=== PATIENT | female | born 1990 | race Caucasian/White ===

== ENCOUNTER 2018-11-26 18:26 | Observation (INO) | payer MEDICAID ==
[2018-11-26 19:49] LABS: BASOPHILS 0.1 % (0-2); EOSINOPHILS 0.3 % (0-7); HEMATOCRIT 26.1 % (36.0-48.0); HEMOGLOBIN 7.9 g/dL (12-16); IMMATURE GRANULOCYTES 0.4 % (0-5); LYMPHOCYTES 9.9 % (15-50); MCH 21.4 pg (26.0-34.0); MCHC 30.3 g/dL (31.0-37.0); MCV 70.5 fL (80.0-100.0); MEAN PLATELET VOLUME 8.6 fL (7.4-10.4); MONOCYTES 4.4 % (2-11); NEUTROPHILS 84.9 % (40-80); PLATELET COUNT 460 10x3/uL (130-400); RDW 16.8 % (11.5-14.5); WBC 15.8 10x3/uL (4.8-10.8)
[2018-11-26 19:53] LABS: APPEARANCE CLEAR (CLEAR); BILIRUBIN NEGATIVE (NEGATIVE); COLOR YELLOW (YELLOW); GLUCOSE NEGATIVE (NEGATIVE); KETONE NEGATIVE (NEGATIVE); NITRITE NEGATIVE (NEGATIVE); PROTEIN TRACE mg/dL (NEGATIVE); SPECIFIC GRAVITY 1.015 (1.005-1.020); UROBILINOGEN NORMAL (NORMAL)
[2018-11-26 19:54] LABS: BACTERIA MODERATE /hpf (NONE SEEN); EPITHELIAL CELLS 0-5 /hpf (0-5); RED CELLS - URINE OCC /hpf (0-5)
[2018-11-26 20:01] LABS: UDS - AMPHET NEGATIVE QUAL (NEGATIVE); UDS - BARB NEGATIVE QUAL (NEGATIVE); UDS - BENZO NEGATIVE QUAL (NEGATIVE); UDS - COCAINE NEGATIVE QUAL (NEGATIVE); UDS - OPIATE NEGATIVE QUAL (NEGATIVE); UDS - PCP NEGATIVE QUAL (NEGATIVE); UDS - THC NEGATIVE QUAL (NEGATIVE)
[2018-11-27 01:49] LABS: BASOPHILS 0.1 % (0-2); EOSINOPHILS 0.3 % (0-7); HEMOGLOBIN 8.5 g/dL (12-16); IMMATURE GRANULOCYTES 0.5 % (0-5); MCH 22.6 pg (26.0-34.0); MCHC 31.5 g/dL (31.0-37.0); MCV 71.8 fL (80.0-100.0); MEAN PLATELET VOLUME 8.5 fL (7.4-10.4); MONOCYTES 1.2 % (2-11); NEUTROPHILS 91.9 % (40-80); PLATELET COUNT 386 10x3/uL (130-400); RBC 3.76 10x6/uL (4.00-5.40); RDW 17.2 % (11.5-14.5); WBC 14.3 10x3/uL (4.8-10.8)
[2018-11-27 02:10] LABS: ALBUMIN 1.7 g/dL (3.4-5.0); ANION GAP 11.3 mmol/L (8-16); BILIRUBIN - TOTAL 0.25 mg/dL (0.2-1.3); CALCIUM 8.8 mg/dL (8.5-10.1); POTASSIUM - SERUM 3.3 mmol/L (3.5-5.1); PROTEIN - SERUM 6.7 g/dL (6.4-8.2)
[2018-11-27 03:59] LABS: APPEARANCE HAZY (CLEAR); BACTERIA MODERATE /hpf (NONE SEEN); BILIRUBIN NEGATIVE (NEGATIVE); COLOR YELLOW (YELLOW); EPITHELIAL CELLS 0-5 /hpf (0-5); GLUCOSE NEGATIVE (NEGATIVE); KETONE SMALL mg/dL (NEGATIVE); MUCUS <1+ /lpf (NONE SEEN); NITRITE POSITIVE (NEGATIVE); PROTEIN TRACE mg/dL (NEGATIVE); SPECIFIC GRAVITY 1.015 (1.005-1.020); UROBILINOGEN NORMAL (NORMAL)
[2018-11-27 04:00] LABS: RED CELLS - URINE OCC /hpf (0-5)
[2018-11-28 06:20] LABS: BASOPHILS 0.2 % (0-2); EOSINOPHILS 1.2 % (0-7); HEMATOCRIT 25.6 % (36.0-48.0); HEMOGLOBIN 7.8 g/dL (12-16); IMMATURE GRANULOCYTES 0.5 % (0-5); LYMPHOCYTES 14.4 % (15-50); MCH 21.9 pg (26.0-34.0); MCHC 30.5 g/dL (31.0-37.0); MCV 71.9 fL (80.0-100.0); MEAN PLATELET VOLUME 8.7 fL (7.4-10.4); MONOCYTES 4.6 % (2-11); NEUTROPHILS 79.1 % (40-80); PLATELET COUNT 454 10x3/uL (130-400); RBC 3.56 10x6/uL (4.00-5.40); RDW 17.2 % (11.5-14.5); WBC 12.8 10x3/uL (4.8-10.8)
== END 2018-11-28 09:30 | disposition home or self-care (01) ==
LOC: D.LDO 18:26 → OBSVTIME 18:47 → D.LD 18:47 → D.LDO 23:56 → D.LD 11-28 09:30 → D.LDO 11-28 09:30 → D.LD 12-01 09:50
PROVIDERS: ADMIT Obstetrics & Gynecology; ATTEND Obstetrics & Gynecology
DX: O23.03 Infections of kidney in pregnancy, third trimester (principal); Z3A.34 34 weeks gestation of pregnancy; O99.013 Anemia complicating pregnancy, third trimester; N85.8 Other specified noninflammatory disorders of uterus

== ENCOUNTER 2018-12-10 21:47 | Outpatient (CLI) | payer MEDICAID ==
[2018-12-10 22:10] LABS: UDS - AMPHET NEGATIVE QUAL (NEGATIVE); UDS - BARB NEGATIVE QUAL (NEGATIVE); UDS - BENZO NEGATIVE QUAL (NEGATIVE); UDS - COCAINE NEGATIVE QUAL (NEGATIVE); UDS - OPIATE NEGATIVE QUAL (NEGATIVE); UDS - PCP NEGATIVE QUAL (NEGATIVE); UDS - THC NEGATIVE QUAL (NEGATIVE)
[2018-12-10 22:20] LABS: APPEARANCE HAZY (CLEAR); BILIRUBIN NEGATIVE (NEGATIVE); COLOR YELLOW (YELLOW); GLUCOSE NEGATIVE (NEGATIVE); KETONE NEGATIVE (NEGATIVE); NITRITE NEGATIVE (NEGATIVE); PROTEIN NEGATIVE (NEGATIVE); UROBILINOGEN NORMAL (NORMAL)
[2018-12-10 22:21] LABS: BACTERIA MANY /hpf (NONE SEEN); EPITHELIAL CELLS 0-5 /hpf (0-5); RED CELLS - URINE OCC /hpf (0-5)
== END 2018-12-11 02:38 | disposition home or self-care (01) ==
LOC: D.LDO 21:47 → D.LD 23:00 → D.LDO 12-11 02:38
PROVIDERS: ATTEND Obstetrics & Gynecology
DX: O26.893 Other specified pregnancy related conditions, third trimester (principal); Z3A.36 36 weeks gestation of pregnancy

== ENCOUNTER 2018-12-14 23:51 | Inpatient (IN) | payer MEDICAID ==
[~2018-12-14] VITALS: Ht 165.1 cm; Wt 73.6 kg
[2018-12-15] MEDS ORDERED: FER-IN-SOL DROP50 ML PO
[2018-12-15 00:27] LABS: APPEARANCE CLEAR (CLEAR); BILIRUBIN NEGATIVE (NEGATIVE); COLOR YELLOW (YELLOW); GLUCOSE NEGATIVE (NEGATIVE); KETONE NEGATIVE (NEGATIVE); NITRITE NEGATIVE (NEGATIVE); PROTEIN NEGATIVE (NEGATIVE); SPECIFIC GRAVITY 1.005 (1.005-1.020); UROBILINOGEN NORMAL (NORMAL)
[2018-12-15 00:41] LABS: UDS - AMPHET POSITIVE QUAL (NEGATIVE); UDS - BARB NEGATIVE QUAL (NEGATIVE); UDS - BENZO NEGATIVE QUAL (NEGATIVE); UDS - COCAINE NEGATIVE QUAL (NEGATIVE); UDS - OPIATE NEGATIVE QUAL (NEGATIVE); UDS - PCP NEGATIVE QUAL (NEGATIVE); UDS - THC NEGATIVE QUAL (NEGATIVE)
[2018-12-15 05:06] VITALS: BP 104/59; Ht 165.1 cm; Wt 73.6 kg
[2018-12-15 05:45] LABS: HEMATOCRIT 26.9 % (36.0-48.0); HEMOGLOBIN 7.9 g/dL (12-16); MCH 21.7 pg (26.0-34.0); MCHC 29.4 g/dL (31.0-37.0); MCV 73.9 fL (80.0-100.0); MEAN PLATELET VOLUME 9.3 fL (7.4-10.4); RBC 3.64 10x6/uL (4.00-5.40); RDW 21.1 % (11.5-14.5); WBC 11.7 10x3/uL (4.8-10.8)
--- NOTE | 2018-12-15 12:48 | NUR ---
DR EATON PHONES UNIT, ORDERS 2 HOUR POST PRANDIAL FSBS ON PT WITH REGULAR DIET, WELL NOTIFY CASE MANAGEMENT OF ORDER FOR CONSULT TODAY. CASE MANAGEMENT PHONED WITH NO ANSWER, WILL RETRY.
--- NOTE | 2018-12-15 13:17 | NUR ---
SPOKE WITH KULDEEP IN CASE MANAGEMENT VIA PHONE, INFORMED OF ORDER FOR CONSULT AND REASON FOR CONSULT. UNDERSTANDING VERBALIZED.
--- NOTE | 2018-12-15 14:00 | NUR ---
WATCHING TV. VISITOR AT BEDSIDE. FUNDUS UU/FIRM. SCANT LOCHIA NOTED ON PAD.
--- NOTE | 2018-12-15 15:00 | NUR ---
RATES PAIN AT 7/10, TYLENOL AND TORDAL GIVEN SCANNED TO EMAR. PT QUESTIONS ABOUT WALKING OUT SIDE BUT UNDERSTANDS THAT AGAINST HOSPITAL POLICY. LARGE CUP OF ICE WITH LEMON [place] PER REQUEST.
[2018-12-15 19:15] VITALS: BP 119/70
--- NOTE | 2018-12-15 19:15 | NUR ---
PT REC'D IN BED AT THIS TIME. LUNGS CLEAR. BS+. SALINE LOCK TO THE RT HAND. FUNDUS FIRM AND MIDLINE AT U/2. SMALL AMOUNT OF LOCHIA NOTED AT THIS TIME. NO SITRESS NOTED. Becca RAGLAND RN
--- NOTE | 2018-12-15 20:58 | NUR ---
PT MEDICATED WITH SCHEDULED TYLENOL FOR PAIN LEVEL OF 5 FOR CRAMPING. ALSO PLACED 14 MG NICOTINE PATCH TO UPPER LEFT ARM. NO DISTRESS NOTED. Becca RAGLAND RN
--- NOTE | 2018-12-15 22:30 | NUR ---
PT UP WALKING IN HALLWAYS. NO COMPLAINTS. PT BACK TO ROOM AT THIS TIME. Becca RAGLAND RN
--- NOTE | 2018-12-15 23:00 | NUR ---
PT ASLEEP AT THIS TIME. NO DISTRESS NOTED. Becca RAGLAND RN
--- NOTE | 2018-12-16 01:00 | NUR ---
PT RESTING AT THIS TIME. WITH S/O AT SIDE. NO DISTRESS NOTED AT THIS TIME. Becca RAGLAND RN
--- NOTE | 2018-12-16 02:59 | NUR ---
pt medicated for pain level of 6 at this time. will continue to monitor. pt awakened from sleep and dozes intermittently. pt informed that she has other medication to take for pain if tylenol does not help. understanding verbalized. binh borrego rn
--- NOTE | 2018-12-16 04:40 | NUR ---
PT HOLDING AT THIS TIME. DENIES PAIN. PROVIDED WITH SPRITE. NO OTHER NEEDS VOICED AT THIS TIME. Becca RAGLAND RN
--- NOTE | 2018-12-16 04:45 | NUR ---
LAB DRAWN AND TO YOSELIN. Becca RAGLAND RN
[2018-12-16 05:10] LABS: BASOPHILS 0.2 % (0-2); EOSINOPHILS 0.7 % (0-7); HEMATOCRIT 29.8 % (36.0-48.0); HEMOGLOBIN 8.6 g/dL (12-16); IMMATURE GRANULOCYTES 1.1 % (0-5); LYMPHOCYTES 26.5 % (15-50); MCH 21.8 pg (26.0-34.0); MCHC 28.9 g/dL (31.0-37.0); MCV 75.4 fL (80.0-100.0); MEAN PLATELET VOLUME 9.1 fL (7.4-10.4); MONOCYTES 5.6 % (2-11); NEUTROPHILS 65.9 % (40-80); PLATELET COUNT 370 10x3/uL (130-400); RBC 3.95 10x6/uL (4.00-5.40); RDW 21.4 % (11.5-14.5); WBC 12.3 10x3/uL (4.8-10.8)
--- NOTE | 2018-12-16 06:13 | NUR ---
pt asleep at this time. did not awaken. infant at bedside. binh borrego rn
--- NOTE | 2018-12-16 06:16 | NUR ---
PT ASLEEP AT THIS TIME. DID NOT AWAKEN. RESPS EVEN AND UNLABORES. Becca RAGLAND RN
[2018-12-16 07:14] LABS: RAPID PLASMA REAGIN Non Reactive (Non Reactive)
[2018-12-16 07:59] VITALS: BP 120/64
--- NOTE | 2018-12-16 08:00 | NUR ---
am assessment completed. see flowsheet. pt denies heavy bleeding, states she has noticed a few "very small blood clots, but nothing big, and i know that's to be expected". abdomen palpates soft, fundus firm, u/1, small rubra lochia, no clots expelled. infant in room, no distress noted. pt denies needs at this time. sr up x2, call light and phone within reach.
--- NOTE | 2018-12-16 11:00 | NUR ---
pt requests to get up to the shower, linens/gown and soap/toothbrush/paste/peripanties/pads provided. pt also requests a sprite to drink. served. pt denies dizziness, sob, or difficulty breathing, pt also denies heavy bleeding or passing clots. sig other at bedside, with infant also in room with sig other.
--- NOTE | 2018-12-16 12:13 | NUR ---
pt sitting up in the bed, holding infant. sig other also in the bed with pt. pt denies all needs at this time. rating pain as 1/10, "cramping a little" to abdomen. srup x 2, call light and phone within reach.
--- NOTE | 2018-12-16 15:00 | NUR ---
dr. swenson, afternoon nanny to room to speak with pt.
--- NOTE | 2018-12-16 15:58 | NUR ---
PT C/O ABDOMINAL CRAMPING OF "6" ON 0-10 PAIN SCALE. TORADOL 10 MG AND TYELENOL 1000 MG GIVEN PO ORDERED. PT INSTRUCTED ON MEDS. VERBALIZES UNDERSTANDING.
--- NOTE | 2018-12-16 18:20 | NUR ---
DR BENEDICT NOTIFIED NOT BEING DISCHARGED FOR POSSIBLY MORE THAN 1 DAY. ORDER RECEIVED TO DC TO ROOMING IN STATUS.
[2018-12-20 15:09] LABS: UDSC - AMPHET Positive (Cutoff=1000); UDSC - BARB Negative ng/mL (Cutoff=300); UDSC - BENZO Negative ng/mL (Cutoff=300); UDSC - COC Negative ng/mL (Cutoff=300); UDSC - METH Negative ng/mL (Cutoff=300); UDSC - OPIATES Negative ng/mL (Cutoff=300); UDSC - PCP Negative ng/mL (Cutoff=25); UDSC - PROPOXY Negative ng/mL (Cutoff=300); UDSC - THC Negative ng/mL (Cutoff=50)
== END 2018-12-16 19:56 | disposition home or self-care (01) | DRG 807 ==
LOC: D.LDO 23:51 → D.LD 23:51 → D.LDO 12-15 04:28 → D.LD 12-15 04:28
PROVIDERS: ADMIT Obstetrics & Gynecology; ATTEND Obstetrics & Gynecology
PROC: 3E033VJ Introduction of Other Hormone into Peripheral Vein, Percutaneous Approach (ICD-10-PCS; 2018-12-15)
PROC: 10907ZC Drainage of Amniotic Fluid, Therapeutic from Products of Conception, Via Natural or Artificial Opening (ICD-10-PCS; 2018-12-15)
PROC: 10E0XZZ Delivery of Products of Conception, External Approach (ICD-10-PCS; principal; 2018-12-16)
DX: O24.429 Gestational diabetes mellitus in childbirth, unspecified control (principal); Z37.0 Single live birth; O77.0 Labor and delivery complicated by meconium in amniotic fluid; Z3A.37 37 weeks gestation of pregnancy; O76 Abnormality in fetal heart rate and rhythm complicating labor and delivery; O99.334 Smoking (tobacco) complicating childbirth

== ENCOUNTER 2019-09-04 18:30 | Emergency (ER) | payer MEDICAID ==
[~2019-09-04] VITALS: Ht 165.1 cm; Wt 7544.1 kg
[~2019-09-04 18:30] MED LIST: FER-IN-SOL DROP50 ML PO; MACROBID100 MG PO; MONODOX100 MG PO
[2019-09-04 18:42] VITALS: Ht 165.1 cm; Wt 7544.1 kg
[2019-09-04 19:30] LABS: BILIRUBIN NEGATIVE (NEGATIVE); GLUCOSE NEGATIVE (NEGATIVE); KETONE NEGATIVE (NEGATIVE); NITRITE NEGATIVE (NEGATIVE); SPECIFIC GRAVITY 1.015 (1.005-1.020); UROBILINOGEN NORMAL (NORMAL)
[2019-09-04 19:31] LABS: BACTERIA FEW /hpf (NEGATIVE); EPITHELIAL CELLS 0-5 /hpf (0-5); HCG URINE POSITIVE (NEGATIVE); RED CELLS - URINE OCC /hpf (0-5); WHITE CELLS - URINE 0-5 /hpf (NEGATIVE); YEAST <1+ /hpf (NONE SEEN)
[2019-09-04] MEDS ORDERED: MACROBID100 MG PO (19:40)
[2019-09-04 19:46] VITALS: BP 111/77
== END 2019-09-04 19:46 | disposition home or self-care (01) ==
LOC: D.ER 18:30
PROVIDERS: Family Medicine
DX: O23.40 Unspecified infection of urinary tract in pregnancy, unspecified trimester (principal); Z3A.00 Weeks of gestation of pregnancy not specified; R30.0 Dysuria